=== PATIENT | female | born 1980 | race Caucasian/White ===

== ENCOUNTER 2019-09-03 06:25 | Outpatient (CLI) | payer OTHER ==
[2019-09-03 11:42] LABS: Anion Gap 12 mmol/L (10-20); BUN (Urea Nitrogen) 9 mg/dL (7.0-18.7); Calc. Creatinine Clearance 0 mL/min (70-130); Calcium 9.1 mg/dL (7.8-10.44); Carbon Dioxide 24 mmol/L (22-29); Chloride 107 mmol/L (98-107); Estimated GFR-MDRD 66; Glucose 90 mg/dL (70-105); Potassium 4.4 mmol/L (3.5-5.1); Sodium 139 mmol/L (136-145)
--- NOTE | 2019-09-07 10:30 | EKG ---
Test Reason : Blood Pressure : / mmHG Vent. Rate : 071 BPM Atrial Rate : 071 BPM P-R Int : 108 ms QRS Dur : 098 ms QT Int : 416 ms P-R-T Axes : 046 061 042 degrees QTc Int : 452 ms Sinus rhythm with short WI Otherwise normal ECG No previous ECGs available Confirmed by PAOLA CORCORAN (2) on 09/07/2019 10:30:05 AM Referred By: FARA Confirmed By:PAOLA CORCORAN
== END 2019-09-03 06:26 | disposition home or self-care (01) ==
LOC: LABBT 06:25
PROVIDERS: ATTEND Obstetrics & Gynecology
DX: Z01.818 Encounter for other preprocedural examination (principal); D25.9 Leiomyoma of uterus, unspecified; N92.0 Excessive and frequent menstruation with regular cycle; N94.6 Dysmenorrhea, unspecified; R10.2 Pelvic and perineal pain
CPT/HCPCS: 80048; 93005; 93010

== ENCOUNTER 2019-09-06 06:15 | Day surgery (SDC) | payer OTHER ==
[2019-09-03 10:33] VITALS: BMI 26.2
[2019-09-03 11:26] LABS: Hemoglobin 13.7 g/dL (12.0-16.0); Mean Corpuscular HGB CONC 32.9 g/dL (32.0-36.0); Mean Corpuscular Hemoglobin 29.7 pg (27.0-31.0); Mean Corpuscular Volume 90.5 fL (78.0-98.0); Mean Platelet Volume 7.8 fL (7.4-10.4); Platelet Count 252 thou/uL (130-400); RBC Distribution Width 12.7 % (11.5-14.5); White Blood Cell (WBC) Count 5.5 thou/uL (4.8-10.8)
[2019-09-06] MEDS ORDERED: Ketamine 50 MG/ML (10ML VIAL) ONE (06:24)
[2019-09-06] MEDS ORDERED: Lidocaine 2% Jelly 5 ML TUBE ONE (06:24)
[2019-09-06] MEDS ORDERED: Fentanyl 100 MCG/2 ML VIAL ONE ×2 (06:24→06:26)
[2019-09-06] MEDS ORDERED: HYDROmorphone 0.5 MG/0.5 ML SYRINGE ONE (06:24)
[2019-09-06] MEDS ORDERED: Albumin 5% 500 ML ONE (06:24)
[2019-09-06] MEDS ORDERED: Midazolam HCl 2 mg/2 ml Vial ONE (06:24)
[2019-09-06] MEDS ORDERED: Bupivacaine PF 0.5% 30 ML VIAL ONE (06:34)
[2019-09-06] MEDS ORDERED: Gabapentin 300 MG CAP ONE (06:46)
[2019-09-06] MEDS ORDERED: Famotidine/PF 20 mg/2ml Vial ONE (06:48)
[2019-09-06] MEDS ORDERED: CeleCOXIB 100 MG CAP ONE ×2 (06:49→06:50)
[2019-09-06] MEDS ORDERED: Ropivacaine 0.2% 550 ML 750 ML NERVE BLCK SCH (07:45)
[2019-09-06] MEDS ORDERED: Ropivacaine HCl/PF 750 ML NERVE BLCK SCH ×2 (08:45)
[2019-09-06] MEDS ORDERED: Hydrochlorothiazide 25 MG TAB PO SCH (09:00)
[2019-09-06] MEDS ORDERED: Amlodipine 10 MG TAB PO SCH (09:00)
[2019-09-06] MEDS ORDERED: LISDEXAMFETAMINE DIMESYLATE PO SCH (09:00)
[2019-09-06] MEDS ORDERED: Dexamethasone 20 MG/5 ML VIAL ONE (09:21)
[2019-09-06] MEDS ORDERED: ePHEDrine/0.9% NaCl/PF SYRINGE 50 mg/10 ml ONE (09:21)
[2019-09-06] MEDS ORDERED: Ondansetron PF 4 MG/2 ML Vial ONE (09:21)
[2019-09-06] MEDS ORDERED: Rocuronium Bromide 10 MG/ML (10ML VIAL) ONE (09:21)
[2019-09-06] MEDS ORDERED: Glycopyrrolate 0.2 MG/ML 5 ML SYRINGE ONE (09:21)
[2019-09-06] MEDS ORDERED: PROPOFOL 200 MG/20 ML VIAL ONE (09:21)
[2019-09-06] MEDS ORDERED: Lidocaine 1% PF 5 ML VIAL ONE (09:21)
[2019-09-06] MEDS ORDERED: HYDROcodone/Acetaminophen 5/325 mg Tablet PO PRN ×2 (10:18)
[2019-09-06] MEDS ORDERED: Zolpidem Tartrate 5 MG TAB PO PRN (10:18)
[2019-09-06] MEDS ORDERED: Bisacodyl 10 MG SUPP PR PRN (10:18)
[2019-09-06] MEDS ORDERED: Promethazine HCl 25 MG/ML VIAL IM PRN (10:18)
[2019-09-06] MEDS ORDERED: Ondansetron PF 4 MG/2 ML Vial IVP PRN (10:18)
[2019-09-06] MEDS ORDERED: Simethicone Chewable 80 MG TAB PO PRN (10:18)
[2019-09-06] MEDS ORDERED: Morphine 4 MG/ML VIAL SLOW IVP PRN (10:18)
[2019-09-06] MEDS ORDERED: diphenhydrAMINE 25 MG CAP PO PRN (10:18)
--- NOTE | 2019-09-06 11:14 | OP ---
DATE OF PROCEDURE: 09/06/2019 [facility] SURGEON: La Barraza PA-C. PREOPERATIVE DIAGNOSES: 1. Enlarged fibroid uterus. 2. Pelvic pain. 3. Dysmenorrhea. 4. Menorrhagia. POSTOPERATIVE DIAGNOSIS: Status post hysterectomy. PROCEDURES PERFORMED: 1. Robotic-assisted total laparoscopic hysterectomy with bilateral salpingectomy. 2. Extracorporeal morcellation in a contained bag. 3. ON-Q pump placement. COMPLICATIONS: None. ESTIMATED BLOOD LOSS: 75 mL. OPERATIVE FINDINGS: Normal-appearing vagina and cervix. Uterus sounds to 10 cm. LAPAROSCOPIC FINDINGS: 1. A large fundal fibroid, approximately 9 to 10 cm in diameter. Normal-appearing fallopian tubes and ovaries bilaterally. 2. Vaginal cuff hemostatic. PROCEDURE IN DETAIL: The patient was taken back to the OR with IV fluids running. Once she was in the OR, she was placed in the dorsal supine position and general anesthesia was obtained. After the patient was asleep, she was placed in low dorsal lithotomy position and the abdomen and vagina were prepped and draped in normal fashion for gynecologic laparoscopy. A Siddiqi catheter was placed and drained approximately 100 mL of urine. The catheter tip was attached to a Ricki syringe for bladder manipulation during the case. An operative speculum was placed into the vagina. The anterior lip of the cervix was grasped and the uterus was sounded. A [employer] manipulator was assembled with a 10-cm tip and a 4-cm cup and placed into the uterus and vagina in routine fashion for uterine manipulation during the case. The surgeon's gloves were then changed and attention was turned to the laparoscopic portion of the procedure. Beginning approximately 2 cm above the umbilicus, local anesthesia was placed underneath the skin. A 12-mm skin incision was made and a Veress needle was placed through this incision. The abdomen was then insufflated without difficulty. A 12-mm trocar was then placed through this incision followed by the laparoscope with the above findings noted. Next, the left and right lower quadrant and the right upper quadrant ports were all placed under direct visualization and without difficulty. Once all 4 ports were placed, the robot was docked to the patient's bedside with the instruments placed under direct visualization into the pelvis. Beginning on the patient's left side, the left fallopian tube was identified, grasped, and elevated away from the pelvic sidewall. The fallopian tube was transected using cautery and removed from the surgical field. The left utero-ovarian ligament was then identified, cauterized, and transected, allowing the left ovary to fall away to the pelvic sidewall. With the uterus elevated and the bowel manipulated out of the pelvis, the left ureter was visualized and noted to be tracking along its normal anatomic course and away from the planned sites of dissection. The round ligament on the patient's left side was then identified, cauterized, and transected. It was dissected down towards the level of the uterine artery. The uterine artery on the patient's left side was then skeletonized, cauterized, and transected. The bladder flap on the patient's right side, began from the anterior leaf of the broad ligament towards the midline. The bladder was then dissected away from the planned colpotomy site on this side. Next, attention was turned to the contralateral side. The right fallopian tube was identified, transected, and removed from the surgical field. The right utero-ovarian ligament was cauterized and transected, allowing the right ovary to fall away to the pelvic sidewall. The uterus was elevated and displaced away from the right pelvic sidewall and the ureter was noted to be also running in its normal anatomic course along the right pelvic sidewall. The round ligament on the patient's right side was identified, cauterized, and transected. The uterine artery on the patient's right side was skeletonized, cauterized, and transected. The bladder flap was created on the right side from the anterior leaf of the broad ligament and the bladder was dissected away from the planned colpotomy site. The bladder was backfilled and noted to be away from the planned colpotomy site. The vesicouterine fascia was then dissected in layers further, releasing the bladder from the planned colpotomy site. The colpotomy was then performed circumferentially, freeing the uterine specimen from the vagina. The uterus was then moved to the side of the pelvis. The vaginal cuff was copiously irrigated and dried. Any small areas of bleeding were controlled with Bovie cauterization. The vaginal cuff was then reapproximated with Stratafix suture in a running locked fashion and in 2 layers. After the vaginal cuff was closed, the vaginal cuff and ovaries were irrigated and suctioned dry. No areas of bleeding were noted. A layer of Tisseel was placed over the vaginal cuff for additional hemostatic protection. An ON-Q catheter tip was placed under direct visualization to the anterior abdominal wall and placed down into the pelvis. Next, an EndoCatch bag, which had been placed at the beginning of the case into the abdomen through a Gel-Port that replaced the 12-mm trocar site, was directed down into the pelvis and opened up. The uterine specimen was then placed into this bag and the bag was brought up through the GelPOINT retractor at the supraumbilical incision. Next, approximately 15 minutes were used to morcellate the fibroid specimen out of the self-contained bag. After the morcellation was complete, the EndoCatch bag was removed. The cap of the GelPOINT was replaced and the abdomen was re-insufflated and the pelvis was irrigated and suctioned dry. The pressure was dropped to 6-8 mmHg. The adnexa were inspected as well as the vaginal cuff and no areas of bleeding were noted. The ON-Q catheter tip was noted to be down in the pelvis. All instruments were removed. The ports were removed and the gas was released from the abdomen. The supraumbilical incision was closed at the fascial layer with Vicryl suture. All 4 skin incisions were closed with 4-0 Monocryl and dressed with Dermabond dressing. The vagina was inspected at the end of the case and noted to be hemostatic. There were no complications. Job ID: [id number]
[2019-09-06] MEDS: Sodium Chloride 0.9% 1,000 ML IV SCH ×2 (12:14→18:07)
[2019-09-06] MEDS: Ketorolac Tromethamine 30 MG/ML VIAL IVP SCH ×2 (12:42→18:06)
[2019-09-07] MEDS: Ketorolac Tromethamine 30 MG/ML VIAL IVP SCH (00:44)
[2019-09-07] MEDS: Sodium Chloride 0.9% 1,000 ML IV SCH (03:16)
[2019-09-07 05:16] LABS: Hemoglobin 11.3 g/dL (12.0-16.0); Mean Corpuscular HGB CONC 32.3 g/dL (32.0-36.0); Mean Corpuscular Hemoglobin 29.4 pg (27.0-31.0); Mean Corpuscular Volume 90.9 fL (78.0-98.0); Platelet Count 222 thou/uL (130-400); RBC Distribution Width 12.8 % (11.5-14.5); Red Blood Cell (RBC) Count 3.86 mill/uL (4.20-5.40); White Blood Cell (WBC) Count 11.2 thou/uL (4.8-10.8)
[2019-09-07] MEDS ORDERED: Ibuprofen 800 MG TAB PO SCH (06:00)
--- NOTE | 2019-09-07 08:31 | PDOC.EVN ---
Event Note - Event Note Event Note: Pt post well day 1. She has minimal pain/soreness. She has been up and ambulatory with steady gait. She is urinating and having normal BMs. No vaginal bleeding. No CP, SOB or leg swelling. VSS, Afebrile, resting comfortable. Normal respirartory effort. Abdomen is soft, with intact incsions and ON Q pump in place. No LE edema. PT neurologically at base line. Labs reviewed and stable. PT s/p DEVORAH BS with tree. Pt doing well post operatively. Plan for d/c this am with ON Q pump. Dr. Garcia has sent out home prescriptions. She will follow up in 2 weeks at our office.
[2019-09-07 08:59] VITALS: BP 135/79; TEMP 98.4
== END 2019-09-07 08:59 | disposition home or self-care (01) ==
LOC: SDC 06:15 → 3SE 12:23 → SDC 09-07 08:59
PROVIDERS: ATTEND Obstetrics & Gynecology
PROC: 0UT94ZZ Resection of Uterus, Percutaneous Endoscopic Approach (ICD-10-PCS; principal; 2019-09-06)
PROC: 0UT74ZZ Resection of Bilateral Fallopian Tubes, Percutaneous Endoscopic Approach (ICD-10-PCS; principal; 2019-09-06)
DX: D25.9 Leiomyoma of uterus, unspecified (principal); I10 Essential (primary) hypertension; F90.0 Attention-deficit hyperactivity disorder, predominantly inattentive type; Z79.899 Other long term (current) drug therapy
CPT/HCPCS: 36415; 85027; 86850; 86900; 86901; 88307; A4306; J0690; J1100; J1170; J1885; J2001; J2250; J2405; J2704; J2795; J3010; P9045; S0020; S0028